=== PATIENT | female | born 1960 | race Caucasian/White ===

== ENCOUNTER 2018-02-09 16:48 | Emergency (ER) | payer BC ==
[~2018-02-09] VITALS: Ht 160 cm; Wt 77.6 kg
[~2018-02-09 16:48] MED LIST: ACET325 PO; ATEN25 PO; ATOR10 PO; BISA10S PO; CYCL10 PO; FAMO20 PO; GAVILAX17 GM PO; HYDCHL12.5 PO; HYDCHL25 PO; LOSA25 PO; METF500 PO; ONDA4ODT PO; ROBITUSSIN NIG237 ML PO; TRAM50 PO; TRAZ50 PO; Zanaflex4 M1 PO
[2018-02-09 17:33] LABS: BASOPHILS ABSOLUTE AUTO 0.08 K/mm3 (0.00-0.23); BASOPHILS PERCENT AUTO 1 % (0-2); EOSINOPHILS ABSOLUTE AUTO 0.27 K/mm3 (0.00-0.68); EOSINOPHILS PERCENT AUTO 3 % (0-6); Hematocrit 40.6 % (33.0-51.0); IMMATURE GRAN ABSOLUTE AUTO 0.04 K/mm3 (0.00-0.10); IMMATURE GRAN PERCENT AUTO 0 % (0-1); LYMPHOCYTES ABSOLUTE AUTO 1.62 K/mm3 (0.84-5.20); LYMPHOCYTES PERCENT AUTO 17 % (21-46); MONOCYTES ABSOLUTE AUTO 0.64 K/mm3 (0.16-1.47); MONOCYTES PERCENT AUTO 7 % (4-13); Mean Corpuscular HGB 26.9 pg (26.0-34.0); Mean Corpuscular Volume 84 fL (80-100); Mean Platelet Volume 9.5 fL (9.1-12.4); NEUTROPHILS ABSOLUTE AUTO 7.02 K/mm3 (1.96-9.15); NEUTROPHILS PERCENT AUTO 73 % (41-73); Platelet Count 356 K/mm3 (150-400); RDW Coefficient Variation 12.3 % (11.7-14.2); RDW Standard Deviation 37.2 fL (35.1-46.3); Red Blood Cell Count 4.83 M/mm3 (3.80-5.20); White Blood Cell Count 9.67 K/mm3 (4.00-11.30)
[2018-02-09 17:37] LABS: Influenza A Negative (NEGATIVE); Influenza B Negative (NEGATIVE)
[2018-02-09 17:44] LABS: Source, Urine Clean Catch
[2018-02-09 17:52] LABS: Alanine Aminotransfer (ALT/SGP 30 U/L (12-78); Albumin, Blood 3.9 g/dL (3.4-5.0); Alk Phos 143 U/L (50-136); Anion Gap 7 mmol/L (6-16); Aspartate Aminotrans (AST/SGOT 16 U/L (12-37); Bilirubin, Total 0.3 mg/dL (0.1-1.0); Blood Urea Nitrogen 11 mg/dL (8-24); Bun/Creatinine Ratio 14.7 (12.0-20.0); CO2, Blood 28 mmol/L (21-32); Calcium, Blood 9.1 mg/dL (8.5-10.1); Chloride, Blood 101 mmol/L (98-108); Creatinine, Blood 0.75 mg/dL (0.40-1.00); Globulin, Blood 4.1 g/dL (2.2-4.0); Glomerular Filtration Rate >60 (60-); Glucose, Blood 131 mg/dL (70-99); Potassium, Blood 3.5 mmol/L (3.5-5.5); Sodium, Blood 136 mmol/L (136-145)
[2018-02-09 18:00] LABS: Bilirubin, Urine Neg (Neg); Blood, Urine Neg (Neg); Glucose Qualitative, Urine Neg (Neg); Ketones, Urine Neg (Neg); Leukocyte Esterase, Urine Neg (Neg); Nitrite, Urine Neg (Neg); Protein, Urine Neg (Neg); Urobilinogen, Urine NORM (Normal)
[2018-02-09 18:12] LABS: Appearance, Urine Clear (Clear); Color, Urine Yellow (P-Yellow)
== END 2018-02-09 20:32 | disposition home or self-care (01) ==
LOC: ER 16:48
PROVIDERS: Physician Assistant
DX: J18.1 Lobar pneumonia, unspecified organism (principal); Z87.891 Personal history of nicotine dependence; Z98.51 Tubal ligation status; Z98.890 Other specified postprocedural states; Z79.84 Long term (current) use of oral hypoglycemic drugs; Z79.899 Other long term (current) drug therapy
CPT/HCPCS: 36415; 71046; 80053; 81003; 85025; 87804; 96361; 96365; 99283-25; J0696; J7030

== ENCOUNTER → 2020-12-25 | Outpatient (CLI) | payer OTHER | END | disposition home or self-care (01) | LOC: LAB SHORT 18:15 → LAB 18:15 | DX: N39.0 Urinary tract infection, site not specified (principal) | CPT/HCPCS: 87077; 87086; 87186 ==

== ENCOUNTER 2022-01-09 09:38 | Emergency (ER) | payer OTHER ==
[~2022-01-09] VITALS: Ht 160 cm; Wt 74.8 kg
[2022-01-09] MEDS ORDERED: Amitriptyline H10 MG (10:25)
[2022-01-09] MEDS ORDERED: AMLODIPINE BESYL5 MG (10:26)
[2022-01-09 10:49] LABS: BASOPHILS PERCENT AUTO 1 % (0-2); EOSINOPHILS ABSOLUTE AUTO 0.04 K/mm3 (0.00-0.68); EOSINOPHILS PERCENT AUTO 1 % (0-6); Hematocrit 45.4 % (33.0-51.0); Hemoglobin 15.1 g/dL (11.5-16.0); IMMATURE GRAN ABSOLUTE AUTO 0.02 K/mm3 (0.00-0.10); IMMATURE GRAN PERCENT AUTO 0 % (0-1); LYMPHOCYTES ABSOLUTE AUTO 1.71 K/mm3 (0.84-5.20); LYMPHOCYTES PERCENT AUTO 21 % (21-46); MONOCYTES PERCENT AUTO 6 % (4-13); Mean Corpuscular HGB 27.7 pg (26.0-34.0); Mean Corpuscular HGB Conc 33.3 g/dL (31.5-36.5); Mean Corpuscular Volume 83 fL (80-100); Mean Platelet Volume 10.1 fL (9.1-12.4); NEUTROPHILS PERCENT AUTO 71 % (41-73); Platelet Count 322 K/mm3 (150-400); RDW Coefficient Variation 12.7 % (11.7-14.2); RDW Standard Deviation 38.1 fL (35.1-46.3); Red Blood Cell Count 5.46 M/mm3 (3.80-5.20); White Blood Cell Count 8.27 K/mm3 (4.00-11.30)
[2022-01-09 11:01] LABS: Alanine Aminotransfer (ALT/SGP 34 U/L (12-78); Albumin, Blood 4.1 g/dL (3.4-5.0); Albumin/Globulin Ratio 1.1 (0.8-1.8); Alk Phos 125 U/L (50-136); Anion Gap 9 mmol/L (6-16); Aspartate Aminotrans (AST/SGOT 16 U/L (12-37); Bilirubin, Total 0.2 mg/dL (0.1-1.0); Blood Urea Nitrogen 18 mg/dL (8-24); Bun/Creatinine Ratio 23.8 (12.0-20.0); CO2, Blood 28 mmol/L (21-32); Calcium, Blood 9.6 mg/dL (8.5-10.1); Chloride, Blood 102 mmol/L (98-108); Creatinine, Blood 0.76 mg/dL (0.40-1.00); Ethanol (Alcohol), Blood, Med <3 mg/dL; Globulin, Blood 3.8 g/dL (2.2-4.0); Glomerular Filtration Rate 88 (60-); Glucose, Blood 149 mg/dL (70-99); Potassium, Blood 3.5 mmol/L (3.5-5.5); Sodium, Blood 139 mmol/L (136-145); Total Protein, Blood 7.9 g/dL (6.4-8.2)
[2022-01-09] MEDS ORDERED: CLOP75 PO (12:17)
[2022-01-09] MEDS ORDERED: ASPI81CH PO (12:17)
== END 2022-01-09 12:55 | disposition home or self-care (01) ==
LOC: ER 09:38
PROVIDERS: Student in an Organized Health Care Education/Training Program
DX: I63.9 Cerebral infarction, unspecified (principal); G81.94 Hemiplegia, unspecified affecting left nondominant side; I10 Essential (primary) hypertension; E11.9 Type 2 diabetes mellitus without complications; Z88.8 Allergy status to other drugs, medicaments and biological substances; Z88.5 Allergy status to narcotic agent; Z79.899 Other long term (current) drug therapy; Z79.84 Long term (current) use of oral hypoglycemic drugs; Z87.891 Personal history of nicotine dependence
CPT/HCPCS: 36415; 70450; 80053; 85025; 93005; 93010; A9270; G0480

== ENCOUNTER 2024-07-24 10:22 | Observation (INO) | payer OTHER ==
[~2024-07-24] VITALS: Ht 160 cm; Wt 72.3 kg
[~2024-07-24 10:22] MED LIST changes: +AMLODIPINE BESYL5 MG PO; +ASPI81CH PO; +Amitriptyline H10 MG; +CALCA500S6; +CLOP75 PO; +FENO48; +HYDCHL25
[2024-07-24 11:01] LABS: BASOPHILS ABSOLUTE AUTO 0.06 K/mm3 (0.00-0.23); BASOPHILS PERCENT AUTO 1 % (0-2); EOSINOPHILS ABSOLUTE AUTO 0.06 K/mm3 (0.00-0.68); EOSINOPHILS PERCENT AUTO 1 % (0-6); Hematocrit 38.8 % (33.0-51.0); IMMATURE GRAN ABSOLUTE AUTO 0.01 K/mm3 (0.00-0.10); IMMATURE GRAN PERCENT AUTO 0 % (0-1); LYMPHOCYTES ABSOLUTE AUTO 1.43 K/mm3 (0.84-5.20); LYMPHOCYTES PERCENT AUTO 26 % (21-46); MONOCYTES ABSOLUTE AUTO 0.35 K/mm3 (0.16-1.47); MONOCYTES PERCENT AUTO 6 % (4-13); Mean Corpuscular HGB 27.9 pg (26.0-34.0); Mean Corpuscular HGB Conc 33.5 g/dL (31.5-36.5); Mean Corpuscular Volume 83 fL (80-100); Mean Platelet Volume 9.6 fL (9.1-12.4); NEUTROPHILS ABSOLUTE AUTO 3.63 K/mm3 (1.96-9.15); NEUTROPHILS PERCENT AUTO 66 % (41-73); Platelet Count 347 K/mm3 (150-400); RDW Coefficient Variation 13.1 % (11.7-14.2); RDW Standard Deviation 39.8 fL (35.1-46.3); Red Blood Cell Count 4.66 M/mm3 (3.80-5.20); White Blood Cell Count 5.54 K/mm3 (4.00-11.30)
[2024-07-24] MEDS ORDERED: MethylPREDNISolone Sod Succ 125 MG Vial IV ONE (11:15)
[2024-07-24] MEDS ORDERED: DiphenhydrAMINE HCl 50 MG/ML 1ML Vial IV ONE (11:15)
[2024-07-24 11:24] LABS: Albumin, Blood 4.3 g/dL (3.4-5.0); Albumin/Globulin Ratio 1.4 (0.8-1.8); Bilirubin, Total 0.2 mg/dL (0.1-1.0); Bun/Creatinine Ratio 23.5 (12.0-20.0); Calcium, Blood 9.6 mg/dL (8.5-10.1); Creatinine, Blood 1.02 mg/dL (0.40-1.00); Potassium, Blood 3.3 mmol/L (3.5-5.5); Total Protein, Blood 7.3 g/dL (6.4-8.2)
[2024-07-24] MEDS ORDERED: Clopidogrel Bisulfate 75 MG Tab PO ONE (13:00)
[2024-07-24] MEDS ORDERED: Cilostazol 50 MG Tab PO ONE (13:00)
[2024-07-24] MEDS ORDERED: LOSA50 PO (13:38)
[2024-07-24] MEDS ORDERED: HYDCHL25 PO (13:38)
[2024-07-24] MEDS ORDERED: FENO160 PO (13:39)
[2024-07-24] MEDS ORDERED: OZEMPIC0.25 MG/02 SC (13:39)
[2024-07-24 14:03] LABS: International Normalized Ratio 1.01; Prothrombin Time Results 11.1 Sec (9.7-11.5)
[2024-07-24] MEDS ORDERED: Potassium Chloride 20 MEQ TabCR PO ONE (15:10)
[2024-07-24] MEDS ORDERED: Insulin Regular 100 UNIT/ML 10ML Vial SC SCH (16:30)
[2024-07-24 16:41] LABS: CHOL/HDL RATIO 4.6; Cholesterol 202 mg/dL (50-200); HDL Cholesterol 44 mg/dL (>39); LDL/HDL RATIO 2.3; Low Density Lipoprotein Chol 102 mg/dL (0-110); Triglycerides 280 mg/dL (30-160); Very Low Density Lipoprot Chol 56 mg/dL (6-32)
[2024-07-24 17:39] VITALS: BP 156/87
--- NOTE | 2024-07-24 18:26 | NUR ---
END OF SHIFT SUMMARY: PT ARRIVED TO MEDICAL FLOOR AT 1740 VIA WHEELCHAIR TRANSPORT ACCOMPANIED BY TWO SISTERS WHO LEFT SHORTLY AFTER ARRIVAL TO FLOOR. PT A&Ox4. PLEASANT AND COOPERATIVE WITH CARE. CALLS APPROPRIATELY AND IS ABLE TO ADVOCATE NEEDS EFFECTIVELY. CONTINENT OF BOWEL AND BLADDER; LBM 07/23/24. AMBULATES INDEPENDENTLY SHE HAS NO FURTHER PARESTHESIA OR ATAXIA. MEDS WHOLE c FLUIDS. NO C/O PAIN OR DISCOMFORT. TELE SINUS AT 82. MAINTAINING SPO2 >88% c RA PER SPO2 SPOT CHECK. PROVIDED c DINNER TRAY. MRIs DONE TODAY AND ANTICIPATE ECHO TOMORROW. BED IN LOWEST POSITION, CALL LIGHT WITHIN REACH, ALL NEEDS MET. REPORT TO ONCOMING NURSE.
[2024-07-24 19:15] VITALS: BP 147/75
[2024-07-24] MEDS ORDERED: TraZODone HCl 100 MG Tab PO SCH (21:00)
[2024-07-24] MEDS ORDERED: Cilostazol 50 MG Tab PO SCH (21:00)
[2024-07-24 23:49] VITALS: BP 100/58
[2024-07-24 23:50] VITALS: BP 103/67
[2024-07-25 04:08] VITALS: BP 97/55
[2024-07-25] MEDS ORDERED: NS 500 ML IV ONE (04:30)
--- NOTE | 2024-07-25 05:51 | NUR ---
PT A&Ox4, CIGARETTE PAPER TESTER-X4, PUPILS ARE EQUAL ROUND AND REACTIVE TO LIGHT, FACE SYMETRICAL, INDEPENDENT IN RM AND MOVES ALL EXTREMETIES WELL. NO NOTED DEFICITS BILATERAL BREATH SOUNDS ARE CLEAR. PT BECAME HYPOTENSIVE T/O SHIFT AND WAS SYMPTOMATIC. SHE REPORTED PREVIOUSLY WHEN SHE HAD TAKEN PLETAL IT HAD MADE HER BLOOD PRESSURE LOW. PT REPORTS BP IS NORMALLY 150/70. DISCUSSED WITH HOSPITALIST. 500 ML IV BOLOUS RUNNING RX.
[2024-07-25] MEDS ORDERED: Pantoprazole Sodium 40 MG Tab PO SCH (06:00)
[2024-07-25 06:30] LABS: BASOPHILS ABSOLUTE AUTO 0.02 K/mm3 (0.00-0.23); BASOPHILS PERCENT AUTO 0 % (0-2); EOSINOPHILS ABSOLUTE AUTO 0.01 K/mm3 (0.00-0.68); EOSINOPHILS PERCENT AUTO 0 % (0-6); Hematocrit 34.8 % (33.0-51.0); Hemoglobin 11.7 g/dL (11.5-16.0); IMMATURE GRAN ABSOLUTE AUTO 0.04 K/mm3 (0.00-0.10); IMMATURE GRAN PERCENT AUTO 0 % (0-1); LYMPHOCYTES PERCENT AUTO 10 % (21-46); MONOCYTES ABSOLUTE AUTO 0.83 K/mm3 (0.16-1.47); MONOCYTES PERCENT AUTO 8 % (4-13); Mean Corpuscular HGB 28.3 pg (26.0-34.0); Mean Corpuscular HGB Conc 33.6 g/dL (31.5-36.5); Mean Corpuscular Volume 84 fL (80-100); Mean Platelet Volume 9.8 fL (9.1-12.4); NEUTROPHILS ABSOLUTE AUTO 8.67 K/mm3 (1.96-9.15); NEUTROPHILS PERCENT AUTO 81 % (41-73); Platelet Count 341 K/mm3 (150-400); RDW Coefficient Variation 13.2 % (11.7-14.2); RDW Standard Deviation 40.7 fL (35.1-46.3); Red Blood Cell Count 4.14 M/mm3 (3.80-5.20); White Blood Cell Count 10.67 K/mm3 (4.00-11.30)
[2024-07-25 06:40] VITALS: BP 114/57
[2024-07-25 06:52] LABS: Bun/Creatinine Ratio 19.5 (12.0-20.0); Calcium, Blood 8.7 mg/dL (8.5-10.1); Creatinine, Blood 1.23 mg/dL (0.40-1.00); Potassium, Blood 3.3 mmol/L (3.5-5.5)
--- NOTE | 2024-07-25 07:35 | NUR ---
ASSUMPTION OF CARE: THIS RN ASSUMED CARE OF PATIENT FOR SECOND DAY. AWAKE ASLEEP DURING SHIFT CHANGE REPORT, SITTING UP IN BED AND TALKING ON THE PHONE. DISCUSSED PLAN FOR ECHO AND LIKELY DC IF WNL. BREATHING EVEN AND UNLABORED c ROOM AIR. MOST RECENT TELE STRIP SINUS @ 73. EPISODE OF HYPOTENSION LAST NIGHT; MOST RECENT BP 114/57. NO C/O DIZZINESS OR SYNCOPE. BED IN LOWEST POSITION. CALL LIGHT WITHIN REACH. ACUTE NEEDS MET.
[2024-07-25 07:51] VITALS: BP 115/65
[2024-07-25] MEDS ORDERED: HydroCHLOROthiazide 25 mg Tab PO SCH (09:00)
[2024-07-25] MEDS ORDERED: AmLODIPine Besylate 5 MG Tab PO SCH (09:00)
[2024-07-25] MEDS ORDERED: Clopidogrel Bisulfate 75 MG Tab PO SCH (09:00)
[2024-07-25] MEDS ORDERED: Fenofibrate, Micronized 134 MG Capsule PO SCH (09:00)
[2024-07-25] MEDS ORDERED: Enoxaparin 40 MG/0.4 ML SYR SC SCH (09:00)
[2024-07-25] MEDS ORDERED: Fenofibrate 67 MG Cap PO SCH (09:00)
[2024-07-25] MEDS ORDERED: Losartan Potassium 50 MG Tab PO SCH (09:00)
[2024-07-25] MEDS ORDERED: Potassium Chloride 20 MEQ TabCR PO ONE (09:45)
[2024-07-25 11:20] VITALS: BP 140/74
[2024-07-25] MEDS ORDERED: PANT40 PO (14:20)
[2024-07-25] MEDS ORDERED: CLOP75 PO (14:20)
[2024-07-25] MEDS ORDERED: CILO100 PO (14:43)
--- NOTE | 2024-07-25 14:53 | NUR ---
DISCHARGE SUMMARY: A&Ox4. PLEASANT AND COOPERATIVE WITH CARE. CALLS APPROPRIATELY AND IS ABLE TO ADVOCATE NEEDS EFFECTIVELY. AMBULATES INDEPENDENTLY. CONTINENT OF BOWEL AND BLADDER; LBM 07/25/24. TAKES MEDS WHOLE c FLUIDS. TELE SINUS IN 70s. PATIENT PROVIDED WITH COPY OF DISCHARGE PLAN AND MEDICATION LIST. MED REC FAXED TO PHARMACY. INSTRUCTED TO FOLLOW-UP WITH PCP 3-5 DAYS. ALL QUESTIONS ANSWERED TO THIS NURSE'S ABILITY AND PATIENT VOICED UNDERSTANDING OF DISCHARGE PLAN. IV REMOVED AND PRESSURE DRESSING PLACED. TELE MONITOR REMOVED AND TECH NOTIFIED; SENT BACK TO PCU VIA TUBE STATION BY THIS RN. LEFT FLOOR WITH ALL BELONGINGS AND DISCHARGE PACKET, ESCORTED BY SISTERS, PROVIDING TRANSPORTATION VIA POV.
== END 2024-07-25 14:59 | disposition home or self-care (01) ==
LOC: ER 10:22 → MEDS 15:06
PROVIDERS: Student in an Organized Health Care Education/Training Program; ADMIT Family Medicine
DX: G45.9 Transient cerebral ischemic attack, unspecified (principal); I12.9 Hypertensive chronic kidney disease with stage 1 through stage 4 chronic kidney disease, or unspecified chronic kidney disease; E11.22 Type 2 diabetes mellitus with diabetic chronic kidney disease; N18.30 Chronic kidney disease, stage 3 unspecified; E87.6 Hypokalemia; Z86.73 Personal history of transient ischemic attack (TIA), and cerebral infarction without residual deficits; Z87.891 Personal history of nicotine dependence; Z79.84 Long term (current) use of oral hypoglycemic drugs; Z79.899 Other long term (current) drug therapy; Z88.5 Allergy status to narcotic agent; Z88.8 Allergy status to other drugs, medicaments and biological substances; Z91.041 Radiographic dye allergy status
CPT/HCPCS: 36415; 70450; 70496; 70498; 70551; 80048; 80053; 80061; 82947; 84484; 85025; 85610; 85730; 93005; 93010; 93306; 96372; 96374-59; 96375-59; 97110; 97161; 99285-25; A9270; G0378; J1200; J1650; J1815; J2919; J7040; Q9967